=== PATIENT | male | born 1975 | race Caucasian/White ===

== ENCOUNTER → 2021-03-22 | Outpatient (CLI) | payer BC ==
--- NOTE | 2021-03-22 16:40 | RAD ---
Left ankle 3 views. HISTORY: Left ankle pain after sprain 3 views were taken of the left ankle. There is soft tissue swelling. There is a nondisplaced fracture through the proximal left fifth metatarsal. No other ankle fracture is noted. IMPRESSION: 1. Nondisplaced fracture left fifth metatarsal. 2. Soft tissue swelling. Electronically signed by: Tom Galdamez MD (03/22/2021 4:38 PM) [facility]
== END ==
LOC: RAD 16:23
PROVIDERS: ATTEND Registered Nurse
DX: S93.402A Sprain of unspecified ligament of left ankle, initial encounter (principal); S92.355A Nondisplaced fracture of fifth metatarsal bone, left foot, initial encounter for closed fracture; M79.89 Other specified soft tissue disorders; X58.XXXA Exposure to other specified factors, initial encounter; Y93.89 Activity, other specified; Y92.89 Other specified places as the place of occurrence of the external cause; Y99.8 Other external cause status
CPT/HCPCS: 73610

== ENCOUNTER → 2021-03-29 | Outpatient (CLI) | payer BC ==
--- NOTE | 2021-03-29 15:46 | RAD ---
XR FOOT_LEFT 3 VIEWS History: Reason: FOOT PAIN, F/U FX 1 WEEK AGO, WEIGHT BEARING X RAYS / Spl. Instructions: / History: Technique: 3 views left foot Comparison: March 22, 2021 Findings: Fifth metatarsal base fracture, unchanged alignment. Minimal potential healing along the lateral aspe ct. No new fracture. No dislocation. Impression: 1. Fifth metatarsal base fracture, unchanged alignment. Electronically signed by: Abram Angulo DO (03/29/2021 3:43 PM) [id number]
== END ==
LOC: RAD 09:57
PROVIDERS: ATTEND Podiatrist
DX: S92.352A Displaced fracture of fifth metatarsal bone, left foot, initial encounter for closed fracture (principal); X58.XXXA Exposure to other specified factors, initial encounter; Y93.89 Activity, other specified; Y92.89 Other specified places as the place of occurrence of the external cause; Y99.8 Other external cause status
CPT/HCPCS: 73630

== ENCOUNTER → 2021-05-14 | Outpatient (CLI) | payer BC ==
--- NOTE | 2021-05-17 10:46 | RAD ---
EXAM: XR FOOT_LEFT 3 VIEWS 05/14/2021 3:08 PM CLINICAL INDICATION: Left foot pain, follow-up fracture COMPARISON: Left foot radiograph 03/29/2021 TECHNIQUE: 3 views of the left foot with weightbearing FINDINGS: The fracture at the base of the fifth metatarsal is unchanged in alignment. Fracture yvette ns are less discrete but persists. There may be some developing bridging along the fracture margins. No new fracture or malalignment. Joint spaces are maintained. IMPRESSION: Healing fifth metatarsal base fracture, unchanged in alignment. Electronically signed by: Chelsi Biggs MD (05/17/2021 10:43 AM) [id number]
== END ==
LOC: RAD 15:02
PROVIDERS: ATTEND Podiatrist
DX: S92.355D Nondisplaced fracture of fifth metatarsal bone, left foot, subsequent encounter for fracture with routine healing (principal); X58.XXXD Exposure to other specified factors, subsequent encounter
CPT/HCPCS: 73630

== ENCOUNTER → 2021-06-14 | Outpatient (CLI) | payer BC ==
--- NOTE | 2021-06-14 18:26 | RAD ---
Left foot 3 views: Reason for examination: Left foot pain. Comparison is made to previous study dated 05/14/2021. There is a persistent fracture at the base of the fifth metatarsal bone without significant callus fo rmation or periosteal reaction seen. No new site of fracture or dislocation is seen. The bone density is normal. No abnormal periosteal reaction is seen. Joint spaces are maintained. IMPRESSION: Persistent fracture at the base of the fifth metatarsal bone without significant change. Electronically signed by: Tasha Azevedo MD (06/14/2021 6:24 PM) [id number]
== END ==
LOC: RAD 08:50
PROVIDERS: ATTEND Podiatrist
DX: S92.355D Nondisplaced fracture of fifth metatarsal bone, left foot, subsequent encounter for fracture with routine healing (principal); M79.672 Pain in left foot; X58.XXXD Exposure to other specified factors, subsequent encounter
CPT/HCPCS: 73630

== ENCOUNTER → 2021-06-14 | Outpatient (CLI) | payer BC | LOC: LAB 09:58 | PROVIDERS: ATTEND Podiatrist | DX: S92.355D Nondisplaced fracture of fifth metatarsal bone, left foot, subsequent encounter for fracture with routine healing (principal) | CPT/HCPCS: 82310; 82652 ==

== ENCOUNTER → 2021-07-26 | Outpatient (CLI) | payer BC ==
--- NOTE | 2021-07-26 09:43 | RAD ---
EXAM: Left foot, 3 views. HISTORY: Fracture follow-up. COMPARISON: 06/14/2021 FINDINGS: 3 views of the left foot are obtained. There has been no interval change in a mildly displa francesco fracture the base of the fifth metatarsal. There is slight sclerosis along the fracture line. The re is no new fracture. IMPRESSION: No significant interval healing of a fracture at the base of the fifth metatarsal. The po ssibility of early nonunion is not excluded. Electronically signed by: Chely Marte MD (07/26/2021 9:41 AM) [id number]
== END ==
LOC: RAD 08:09
PROVIDERS: ATTEND Podiatrist
DX: S92.355D Nondisplaced fracture of fifth metatarsal bone, left foot, subsequent encounter for fracture with routine healing (principal); M79.672 Pain in left foot; X58.XXXD Exposure to other specified factors, subsequent encounter
CPT/HCPCS: 73630

== ENCOUNTER → 2021-09-13 | Outpatient (CLI) | payer BC ==
--- NOTE | 2021-09-13 10:21 | RAD ---
XR FOOT_LEFT 3 VIEWS 09/13/2021 8:36 AM INDICATION: Pain, previous fracture COMPARISON: Left foot radiograph 214.2. TECHNIQUE: 3 views of the left foot are provided. FINDINGS/ IMPRESSION: Redemonstration of previously described fracture at the base of the fifth metatarsal with sclerosis a long the margins of the fracture surfaces. No significant osseous bridging is identified. Considerati on may be given for nonunion. Joint spaces are maintained. Bone mineralization is within normal limit s. Regional soft tissues are within normal limits. There is no soft tissue gas or osseous erosion. No radiopaque foreign body. Electronically signed by: Radha Landry MD (09/13/2021 10:19 AM) [id number]
== END ==
LOC: RAD 08:21
PROVIDERS: ATTEND Podiatrist
DX: S92.355D Nondisplaced fracture of fifth metatarsal bone, left foot, subsequent encounter for fracture with routine healing (principal); X58.XXXD Exposure to other specified factors, subsequent encounter
CPT/HCPCS: 73630